=== PATIENT | male | born 1995 | race Two or more races ===

== ENCOUNTER 2023-03-13 03:17 | Emergency (ER) | payer OTHER ==
[~2023-03-13] VITALS: Ht 172.7 cm; Wt 85.0 kg
--- NOTE | 2023-03-13 03:24 | NUR ---
EMT AT BEDSIDE FOR WOUND CARE
[2023-03-13 03:25] VITALS: TEMP 98.4
[2023-03-13] MEDS ORDERED: TDAP [DIPH/PERTUSSIS/TET] 0.5 ML VIAL IM ONE ×2 (03:30→03:36)
--- NOTE | 2023-03-13 03:30 | NUR ---
PT ENDED UP REFUSING WOUND CARE, STATES HE ONLY WANTS TO GET HIS TDAP AND CT DONE.
--- NOTE | 2023-03-13 03:47 | NUR ---
BROUGHT TO CT DEPT
--- NOTE | 2023-03-13 03:57 | NUR ---
PT BACK FROM CT
--- NOTE | 2023-03-13 07:23 | NUR ---
REPORT GIVEN TO [facility]
--- NOTE | 2023-03-13 09:31 | NUR ---
Patient discharged to home in stable condition. Written and verbal after care instructions given. Patient verbalizes understanding of instruction.
[2023-03-13 09:35] VITALS: BP 135/80
== END 2023-03-13 09:35 | disposition home or self-care (01) ==
LOC: EDBD 03:19 → ER 03:19
DX: S00.81XA Abrasion of other part of head, initial encounter (principal); Y08.89XA Assault by other specified means, initial encounter; Y93.89 Activity, other specified; Y92.89 Other specified places as the place of occurrence of the external cause; Y99.8 Other external cause status
CPT/HCPCS: 99285; 70450; 90471; 90715; A6403

== ENCOUNTER 2023-04-20 12:49 | Emergency (ER) | payer MEDICARE, OTHER ==
[~2023-04-20] VITALS: Ht 172.7 cm; Wt 77.1 kg
[2023-04-20 12:57] VITALS: BP 130/70; TEMP 98.2; O2SAT 98
== END 2023-04-20 13:59 | disposition left against medical advice (07) ==
LOC: ER 13:05
DX: R07.89 Other chest pain (principal); Z53.21 Procedure and treatment not carried out due to patient leaving prior to being seen by health care provider

== ENCOUNTER 2023-04-20 14:38 | Emergency (ER) | payer MEDICARE, OTHER ==
[~2023-04-20] VITALS: Ht 167.6 cm; Wt 81.2 kg
[2023-04-20 14:46] VITALS: BP 117/82; TEMP 98.9; O2SAT 98
== END 2023-04-20 15:50 | disposition left against medical advice (07) ==
LOC: ER 14:41
DX: R07.89 Other chest pain (principal); I10 Essential (primary) hypertension; J45.909 Unspecified asthma, uncomplicated; Z60.2 Problems related to living alone

== ENCOUNTER 2023-10-30 23:03 | Emergency (ER) | payer MEDICARE, OTHER ==
[~2023-10-30] VITALS: Ht 167.6 cm; Wt 85.7 kg
[2023-10-30 23:19] VITALS: BP 144/86; TEMP 98; O2SAT 98
[2023-10-30] MEDS: IBUPROFEN 400 MG TABLET PO ONE (23:30)
[2023-10-30] MEDS ORDERED: IBUPROFEN 400 MG TABLET ONE (23:30)
[2023-10-31] MEDS ORDERED: IBUP-1957 PO (01:48)
== END 2023-10-31 01:44 | disposition home or self-care (01) ==
LOC: ER 23:13
DX: M79.672 Pain in left foot (principal); M79.671 Pain in right foot; J45.909 Unspecified asthma, uncomplicated; Z60.2 Problems related to living alone
CPT/HCPCS: 73630-TC

== ENCOUNTER 2024-03-21 07:32 | Emergency (ER) | payer BC, MEDICAID ==
[~2024-03-21] VITALS: Ht 170.2 cm; Wt 81.6 kg
[~2024-03-21 07:32] MED LIST: IBUP-1957 PO
[2024-03-21 07:48] VITALS: BP 110/76; TEMP 97.7; O2SAT 100
[2024-03-21] MEDS ORDERED: IBUP-1957 PO (08:18)
[2024-03-21] MEDS ORDERED: IBUPROFEN 600 MG TABLET ONE (08:20)
[2024-03-21] MEDS: IBUPROFEN 600 MG TABLET PO ONE (08:27)
== END 2024-03-21 08:36 | disposition home or self-care (01) ==
LOC: ER 07:58
DX: R07.89 Other chest pain (principal); I10 Essential (primary) hypertension; J45.909 Unspecified asthma, uncomplicated; Z60.2 Problems related to living alone

== ENCOUNTER 2024-03-25 02:44 | Emergency (ER) | payer BC, MEDICAID ==
[~2024-03-25] VITALS: Ht 167.6 cm; Wt 79.4 kg
[2024-03-25] MEDS ORDERED: TDAP [DIPH/PERTUSSIS/TET] 0.5 ML VIAL IM ONE (03:31)
[2024-03-25] MEDS: TDAP [DIPH/PERTUSSIS/TET] 0.5 ML VIAL IM ONE (03:36)
[2024-03-25 07:07] VITALS: BP 140/97; TEMP 98.8; O2SAT 100
== END 2024-03-25 07:08 | disposition home or self-care (01) ==
LOC: ER 02:45
DX: S01.01XA Laceration without foreign body of scalp, initial encounter (principal); I10 Essential (primary) hypertension; J45.909 Unspecified asthma, uncomplicated; R51.9 Headache, unspecified; Z79.1 Long term (current) use of non-steroidal anti-inflammatories (NSAID); Z60.2 Problems related to living alone; Y04.8XXA Assault by other bodily force, initial encounter; Y93.89 Activity, other specified; Y92.89 Other specified places as the place of occurrence of the external cause; Y99.8 Other external cause status
CPT/HCPCS: 70450-TC; 90715

== ENCOUNTER 2025-04-16 14:52 | Emergency (ER) | payer BC, MEDICAID ==
[~2025-04-16] VITALS: Ht 167.6 cm; Wt 99.3 kg
[2025-04-16] MEDS: IV NS 0.9% 1,000 ML BAG IV ONE (15:00)
[2025-04-16] MEDS: LORAZEPAM INJ 2 MG/ML VIAL IV ONE (15:00)
[2025-04-16] MEDS ORDERED: LORAZEPAM INJ 2 MG/ML VIAL ONE ×3 (15:12→21:08)
[2025-04-16 15:48] LABS: PLATELET COUNT (AUTO) 311 K/uL (150-450); RED BLOOD CELL COUNT(AUTO) 5.03 MIL/uL (4.5-6.0); RED CELL DISTRIBUTION WIDTH 13.3 % (11.5-15.0); WHITE BLOOD COUNT (AUTO) 12.3 K/uL (4.3-11.0)
[2025-04-16 16:02] LABS: ALCOHOL, BLOOD < 3 mg/dL (0-10); ASPARTATE AMINOTRANSFERASE 36 U/L (15-37); CALCIUM, SERUM 9.2 mg/dL (8.5-10.1); CREATININE 0.9 mg/dL (0.6-1.3); SODIUM SERUM 142 mmol/L (136-145); TOTAL PROTEIN, SERUM 8.3 g/dL (6.4-8.2); UREA NITROGEN, BLOOD 20 mg/dL (7-18)
[2025-04-16 16:17] LABS: APPEARANCE,URINE CLEAR (CLEAR); BLOOD, URINE 2+ Ery/uL (NEGATIVE); LEUKOCYTE ESTERASE ,URINE NEGATIVE (NEGATIVE); NITRITE, URINE NEGATIVE (NEGATIVE); UGLUCOSE NEGATIVE (NEGATIVE)
[2025-04-16] MEDS ORDERED: BENZ1TAB7 PO (16:17)
[2025-04-16] MEDS ORDERED: METO25TA20 PO (16:17)
[2025-04-16] MEDS ORDERED: NALT50TA PO (16:17)
[2025-04-16] MEDS ORDERED: PRAZ2CAP PO (16:17)
[2025-04-16] MEDS ORDERED: GUAN2TAB19 PO (16:17)
[2025-04-16] MEDS ORDERED: FAMO20TA8 PO (16:17)
[2025-04-16] MEDS ORDERED: DIVA-78 PO (16:17)
[2025-04-16] MEDS ORDERED: ARIP882S IM (16:17)
[2025-04-16 16:38] LABS: BARBITURATE, URINE NEGATIVE (NEGATIVE); BENZODIAZEPINE, URINE NEGATIVE (NEGATIVE); CANNABINOID, URINE NEGATIVE (NEGATIVE); COCCAINE, URINE NEGATIVE (NEGATIVE); OPIATE, URINE NEGATIVE (NEGATIVE)
[2025-04-16 16:39] LABS: AMPHETAMINE, URINE POSITIVE (NEGATIVE)
[2025-04-16 17:15] LABS: ADD URINE CULTURE NO
[2025-04-16 17:16] LABS: SQUAMOUS EPITHELIAL CELL,UR 51-80 /HPF (None Seen); URINE AMORPHOUS URATE Many /HPF (None Seen)
[2025-04-16 17:26] LABS: LYMPHOCYTES % (MANUAL) 26 % (16-48); MONOCYTES % (MANUAL) 14 % (0-11.0); NEUTROPHILS % (MANUAL) 60 (42-76); PLATELET ESTIMATE ADEQUATE
[2025-04-16] MEDS ORDERED: OLANZAPINE 10 MG VIAL IM ONE (20:01)
[2025-04-16] MEDS: OLANZAPINE 10 MG VIAL IM ONE (20:07)
[2025-04-16] MEDS: LORAZEPAM INJ 2 MG/ML VIAL IM ONE ×2 (20:07→21:10)
[2025-04-17 07:30] VITALS: BP 131/98; TEMP 98; O2SAT 98
== END 2025-04-17 10:25 ==
LOC: ER 15:00
DX: R45.851 Suicidal ideations (principal); F15.129 Other stimulant abuse with intoxication, unspecified; J45.909 Unspecified asthma, uncomplicated; I10 Essential (primary) hypertension; Z79.899 Other long term (current) drug therapy; Z60.2 Problems related to living alone; Z20.822 Contact with and (suspected) exposure to COVID-19
CPT/HCPCS: 99285; 96372 ×2; 96374; 96361; 85027; 80048; 80076; 85007; 81001; 36415; 87426; 80143; 80320; 80307; J2060 ×3; J7030; J3490; G0480

== ENCOUNTER 2025-05-24 04:30 | Emergency (ER) | payer OTHER, MEDICAID ==
[~2025-05-24] VITALS: Ht 162.6 cm; Wt 106.6 kg
[~2025-05-24 04:30] MED LIST changes: +ARIP882S IM; +BENZ1TAB7 PO; +DIVA-78 PO; +FAMO20TA8 PO; +GUAN2TAB19 PO; -IBUP-1957 PO; +METO25TA20 PO; +NALT50TA PO; +PRAZ2CAP PO
[2025-05-24 06:24] LABS: PLATELET COUNT (AUTO) 311 K/uL (150-450); RED BLOOD CELL COUNT(AUTO) 4.44 MIL/uL (4.5-6.0); RED CELL DISTRIBUTION WIDTH 13.9 % (11.5-15.0); WHITE BLOOD COUNT (AUTO) 9.0 K/uL (4.3-11.0)
[2025-05-24 06:29] LABS: CALCIUM, SERUM 9.4 mg/dL (8.5-10.1); CREATININE 1.1 mg/dL (0.6-1.3); SODIUM SERUM 142 mmol/L (136-145); UREA NITROGEN, BLOOD 17 mg/dL (7-18)
[2025-05-24 06:35] LABS: ALCOHOL, BLOOD < 3 mg/dL (0-10); ASPARTATE AMINOTRANSFERASE 84 U/L (15-37); TOTAL PROTEIN, SERUM 8.0 g/dL (6.4-8.2)
[2025-05-24] MEDS ORDERED: OLANZAPINE 5 MG TABLET ONE (06:56)
[2025-05-24] MEDS: OLANZAPINE ZYDIS 5 MG TAB.RAPDIS PO ONE (06:59)
[2025-05-24 07:14] LABS: APPEARANCE,URINE CLEAR (CLEAR); BLOOD, URINE 2+ Ery/uL (NEGATIVE); LEUKOCYTE ESTERASE ,URINE NEGATIVE (NEGATIVE); NITRITE, URINE NEGATIVE (NEGATIVE); UGLUCOSE NEGATIVE (NEGATIVE)
[2025-05-24 07:38] LABS: ADD URINE CULTURE NO; SQUAMOUS EPITHELIAL CELL,UR 0-2 /HPF (None Seen)
[2025-05-24 07:39] LABS: HYALINE CASTS, URINE Rare /LPF (None Seen)
[2025-05-24 07:50] LABS: BARBITURATE, URINE NEGATIVE (NEGATIVE); BENZODIAZEPINE, URINE NEGATIVE (NEGATIVE); CANNABINOID, URINE NEGATIVE (NEGATIVE); COCCAINE, URINE NEGATIVE (NEGATIVE); OPIATE, URINE NEGATIVE (NEGATIVE)
[2025-05-24 07:53] LABS: AMPHETAMINE, URINE POSITIVE (NEGATIVE)
[2025-05-24 14:30] VITALS: BP 141/80; TEMP 97.8; O2SAT 98
== END 2025-05-24 14:59 ==
LOC: ER 04:52
DX: R45.851 Suicidal ideations (principal); F15.10 Other stimulant abuse, uncomplicated; F84.0 Autistic disorder; I10 Essential (primary) hypertension; J45.909 Unspecified asthma, uncomplicated; Z79.899 Other long term (current) drug therapy; Z60.2 Problems related to living alone; Z20.822 Contact with and (suspected) exposure to COVID-19
CPT/HCPCS: 36415; 80048-TC; 80076-TC; 81001; 85025-TC; G0480